=== PATIENT | male | born 1955 | race Caucasian/White ===

== ENCOUNTER 2017-01-21 19:23 | Inpatient (IN) | payer OTHER ==
[~2017-01-21] VITALS: Ht 170.2 cm; Wt 77.9 kg
[2017-01-21 20:26] LABS: BASO % 0.6 % (0.0-2.0); EOS # 0.1 (0.0-0.7); EOS % 0.7 % (0-4.0); GRAN # 4.8 (1.4-6.5); HEMATOCRIT 43.6 % (42.0-52.0); HEMOGLOBIN 14.7 g/dl (13.5-18.0); LYMPH # 1.6 (1.2-3.4); LYMPH % 22.1 % (20.0-51.0); MEAN CELL VOLUME 88 fl (80.0-100.0); MEAN CORPUSCULAR HEMOGLOBIN 30 pg (27.0-31.0); MEAN CORPUSCULAR HGB CONC 34 g/dl (33.0-37.0); MEAN PLATELET VOLUME 9.5 fl (7.4-10.4); MONO # 0.6 (0.1-0.6); PLATELET COUNT 241 K/mm3 (130-400); RED BLOOD COUNT 4.98 M/mm3 (4.20-5.60); REDCELL DISTRIBUTION WIDTH-CV 14.1 % (11.5-14.5); WHITE BLOOD COUNT 7.1 K/mm3 (4.8-10.8)
[2017-01-21 20:42] LABS: PROTHROMBIN TIME 10.7 SECONDS (9.7-12.8)
[2017-01-21 20:43] LABS: ADJUSTED CALCIUM 9.2 mg/dL (8.4-10.2); ALBUMIN 3.5 gm/dL (3.5-5.0); BILIRUBIN,TOTAL 0.6 mg/dL (0.0-1.0); CALCIUM 8.8 mg/dL (8.4-10.2); CREATININE, serum 1.49 mg/dL (0.66-1.25); TOTAL PROTEIN 6.2 gm/dL (6.4-8.2)
[2017-01-21 20:44] LABS: PARTIAL THROMBOPLASTIN TIME 28.5 SECONDS (26.0-37.0)
[2017-01-21 22:40] VITALS: BP 119/96; PULSE 118; TEMP 98.8
[2017-01-22] VITALS (7 sets, daily range): BP systolic 104–114; BP diastolic 65–78; PULSE 91–97; TEMP 97.1–98.6
[2017-01-22 04:36] LABS: PH 5 (5-8); SQUAMOUS EPITHELIAL None Seen /hpf; URINE APPEARANCE Clear; URINE BACTERIA None Seen /hpf; URINE BILIRUBIN Negative (NEGATIVE); URINE BLOOD 1+ (NEGATIVE); URINE COLOR Straw; URINE GLUCOSE Negative (NEGATIVE); URINE KETONE Negative (NEGATIVE); URINE RBC 0-2 /hpf; URINE UROBILINOGEN Negative (NEGATIVE); URINE WBC 0-2 /hpf
[2017-01-22 07:49] LABS: BASO # 0.1 (0.0-0.2); BASO % 0.6 % (0.0-2.0); EOS # 0.1 (0.0-0.7); GRAN # 4.5 (1.4-6.5); GRAN % 58.7 % (42.2-75.2); HEMATOCRIT 42.9 % (42.0-52.0); HEMOGLOBIN 14.6 g/dl (13.5-18.0); LYMPH # 2.2 (1.2-3.4); MEAN CELL VOLUME 88 fl (80.0-100.0); MEAN CORPUSCULAR HEMOGLOBIN 30 pg (27.0-31.0); MEAN CORPUSCULAR HGB CONC 34 g/dl (33.0-37.0); MEAN PLATELET VOLUME 10.2 fl (7.4-10.4); MONO # 0.9 (0.1-0.6); MONO % 11.3 % (1.7-9.3); PLATELET COUNT 255 K/mm3 (130-400); RED BLOOD COUNT 4.87 M/mm3 (4.20-5.60); REDCELL DISTRIBUTION WIDTH-CV 14.3 % (11.5-14.5); WHITE BLOOD COUNT 7.7 K/mm3 (4.8-10.8)
[2017-01-22 08:03] LABS: PROTHROMBIN TIME 11.5 SECONDS (9.7-12.8)
[2017-01-22 08:06] LABS: ADJUSTED CALCIUM 9.5 mg/dL (8.4-10.2); ALBUMIN 3.4 gm/dL (3.5-5.0); BILIRUBIN,TOTAL 0.9 mg/dL (0.0-1.0); CREATININE, serum 1.58 mg/dL (0.66-1.25); MAGNESIUM 1.9 mg/dL (1.6-2.3); POTASSIUM 4.1 mmol/L (3.4-5.0); TOTAL PROTEIN 6.1 gm/dL (6.4-8.2)
[2017-01-22 08:29] LABS: TROPONIN-I 0.047 ng/mL (0.000-0.034)
[2017-01-22 08:32] LABS: THYROID STIMULATING HORMONE 17.2 uIU/mL (0.465-4.680)
[2017-01-23] VITALS (198 sets, daily range): BP systolic 100–130; BP diastolic 71–102; PULSE 76–111; TEMP 97–106; O2SAT 84–98
[2017-01-23 07:35] LABS: HEMATOCRIT 49.9 % (42.0-52.0); MEAN CELL VOLUME 87 fl (80.0-100.0); MEAN CORPUSCULAR HEMOGLOBIN 30 pg (27.0-31.0); MEAN CORPUSCULAR HGB CONC 34 g/dl (33.0-37.0); MEAN PLATELET VOLUME 9.8 fl (7.4-10.4); PLATELET COUNT 266 K/mm3 (130-400); RED BLOOD COUNT 5.73 M/mm3 (4.20-5.60); REDCELL DISTRIBUTION WIDTH-CV 14.2 % (11.5-14.5)
[2017-01-23 07:50] LABS: ADJUSTED CALCIUM 9.3 mg/dL (8.4-10.2); ALBUMIN 4.2 gm/dL (3.5-5.0); BILIRUBIN,TOTAL 1.5 mg/dL (0.0-1.0); CALCIUM 9.5 mg/dL (8.4-10.2); CREATININE, serum 1.64 mg/dL (0.66-1.25); POTASSIUM 3.8 mmol/L (3.4-5.0); TOTAL PROTEIN 7.3 gm/dL (6.4-8.2)
[2017-01-24] VITALS (113 sets, daily range): BP systolic 88–111; BP diastolic 44–97; PULSE 69–96; TEMP 97–98.6; O2SAT 85–98
[2017-01-24 06:19] LABS: BASO % 0.4 % (0.0-2.0); EOS # 0.2 (0.0-0.7); EOS % 2.2 % (0-4.0); GRAN # 5.1 (1.4-6.5); GRAN % 65.9 % (42.2-75.2); HEMATOCRIT 43.4 % (42.0-52.0); LYMPH # 1.6 (1.2-3.4); LYMPH % 20.5 % (20.0-51.0); MEAN CELL VOLUME 88 fl (80.0-100.0); MEAN CORPUSCULAR HEMOGLOBIN 30 pg (27.0-31.0); MEAN CORPUSCULAR HGB CONC 34 g/dl (33.0-37.0); MEAN PLATELET VOLUME 10.1 fl (7.4-10.4); MONO # 0.8 (0.1-0.6); MONO % 10.2 % (1.7-9.3); PLATELET COUNT 223 K/mm3 (130-400); RED BLOOD COUNT 4.94 M/mm3 (4.20-5.60); WHITE BLOOD COUNT 7.7 K/mm3 (4.8-10.8)
[2017-01-24 06:25] LABS: HEMOGLOBIN 14.8 g/dl (13.5-18.0)
[2017-01-24 06:33] LABS: ADJUSTED CALCIUM 9.3 mg/dL (8.4-10.2); ALBUMIN 3.4 gm/dL (3.5-5.0); BILIRUBIN,TOTAL 1.3 mg/dL (0.0-1.0); CALCIUM 8.8 mg/dL (8.4-10.2); CREATININE, serum 1.66 mg/dL (0.66-1.25); POTASSIUM 3.9 mmol/L (3.4-5.0); TOTAL PROTEIN 6.1 gm/dL (6.4-8.2)
[2017-01-25 02:36] VITALS: BP 105/69; PULSE 89; TEMP 98.4
[2017-01-25 07:00] VITALS: BP 106/80; PULSE 85; TEMP 97.5
[2017-01-25 08:39] LABS: ADJUSTED CALCIUM 9.2 mg/dL (8.4-10.2); ALBUMIN 3.8 gm/dL (3.5-5.0); BILIRUBIN,TOTAL 1.3 mg/dL (0.0-1.0); CREATININE, serum 1.46 mg/dL (0.66-1.25); POTASSIUM 3.9 mmol/L (3.4-5.0); TOTAL PROTEIN 6.8 gm/dL (6.4-8.2)
[2017-01-25 09:19] LABS: BASO # 0.1 (0.0-0.2); BASO % 0.9 % (0.0-2.0); EOS # 0.2 (0.0-0.7); GRAN # 3.9 (1.4-6.5); GRAN % 60.2 % (42.2-75.2); HEMOGLOBIN 16.5 g/dl (13.5-18.0); LYMPH # 1.4 (1.2-3.4); LYMPH % 21.9 % (20.0-51.0); MEAN CELL VOLUME 88 fl (80.0-100.0); MEAN CORPUSCULAR HEMOGLOBIN 30 pg (27.0-31.0); MEAN CORPUSCULAR HGB CONC 34 g/dl (33.0-37.0); MEAN PLATELET VOLUME 10.7 fl (7.4-10.4); MONO # 0.8 (0.1-0.6); MONO % 12.7 % (1.7-9.3); RED BLOOD COUNT 5.48 M/mm3 (4.20-5.60); REDCELL DISTRIBUTION WIDTH-CV 13.9 % (11.5-14.5); WHITE BLOOD COUNT 6.4 K/mm3 (4.8-10.8)
[2017-01-25 09:21] LABS: PLATELET COUNT 188 K/mm3 (130-400)
[2017-01-25] MEDS ORDERED: BRILINTA90 MG PO (11:00)
[2017-01-25] MEDS ORDERED: LIPITOR 40MG TA40 MG PO (11:00)
[2017-01-25 11:05] VITALS: BP 101/67; PULSE 91; TEMP 97.7
[2017-01-25] MEDS ORDERED: NITROSTAT0.4 MG/TAB SL (11:07)
[2017-01-25] MEDS ORDERED: VASOTEC 2.2.5 MG/TAB PO (11:12)
[2017-01-25] MEDS ORDERED: TOPROL XL 25MG25 MG PO (11:12)
[2017-01-25] MEDS ORDERED: ASPIRIN 81M81 MG/TA2 PO (11:13)
[2017-01-25] MEDS ORDERED: SYNTHROID0.05 MG/TA PO (11:14)
[2017-01-25] MEDS ORDERED: LASIX 20MG TABL20 MG PO (11:19)
== END 2017-01-25 14:40 | disposition home or self-care (01) | DRG 247 ==
LOC: COL.ER 19:23 → MEDICAL 21:58 → ICU 01-23 14:12 → MEDICAL 01-24 11:50
PROVIDERS: Emergency Medicine; Family Medicine; Internal Medicine; Internal Medicine Cardiovascular Disease; Physician Assistant
PROC: B2111ZZ Fluoroscopy of Multiple Coronary Arteries using Low Osmolar Contrast (ICD-10-PCS; principal; 2017-01-23)
PROC: 027034Z Dilation of Coronary Artery, One Artery with Drug-eluting Intraluminal Device, Percutaneous Approach (ICD-10-PCS; 2017-01-23)
DX: I50.21 Acute systolic (congestive) heart failure (principal); N17.9 Acute kidney failure, unspecified; I42.0 Dilated cardiomyopathy; I25.10 Atherosclerotic heart disease of native coronary artery without angina pectoris; I25.82 Chronic total occlusion of coronary artery; I27.20 Pulmonary hypertension, unspecified
CPT/HCPCS: 99222-AI; 99233-AI; 99239; C1725; C1760; C1769; C1874; C1887; C1894; C9600; J0583; J1644; J1940; J2250; J3010; J7030; Q9967

== ENCOUNTER → 2017-01-27 | Outpatient (CLI) | payer OTHER ==
[~2017-01-27] MED LIST: ASPIRIN 81M81 MG/TA2 PO; BRILINTA90 MG PO; LASIX 20MG TABL20 MG PO; LIPITOR 40MG TA40 MG PO; NITROSTAT0.4 MG/TAB SL; SYNTHROID0.05 MG/TA PO; TOPROL XL 25MG25 MG PO; VASOTEC 2.2.5 MG/TAB PO
[2017-01-27 15:14] LABS: ALBUMIN 4.1 gm/dL (3.5-5.0); CALCIUM 9.2 mg/dL (8.4-10.2); CREATININE, serum 1.61 mg/dL (0.66-1.25); MAGNESIUM 2.1 mg/dL (1.6-2.3); PHOSPHOROUS 3.7 mg/dL (2.5-4.5)
== END ==
LOC: COL.LAB 12:51
PROVIDERS: Family Medicine
DX: N28.9 Disorder of kidney and ureter, unspecified (principal)

== ENCOUNTER 2017-06-17 12:41 | Inpatient (IN) | payer OTHER ==
[~2017-06-17] VITALS: Ht 170.2 cm; Wt 86.0 kg
[2017-06-17 13:39] LABS: HEMATOCRIT 42.1 % (42.0-52.0); HEMOGLOBIN 14.4 g/dl (13.5-18.0); MEAN CELL VOLUME 88 fl (80.0-100.0); MEAN CORPUSCULAR HEMOGLOBIN 30 pg (27.0-31.0); MEAN CORPUSCULAR HGB CONC 34 g/dl (33.0-37.0); MEAN PLATELET VOLUME 9.8 fl (7.4-10.4); PLATELET COUNT 174 K/mm3 (130-400); RED BLOOD COUNT 4.78 M/mm3 (4.20-5.60); REDCELL DISTRIBUTION WIDTH-CV 13.7 % (11.5-14.5)
[2017-06-17 13:47] LABS: ALBUMIN 3.9 gm/dL (3.5-5.0); CALCIUM 8.8 mg/dL (8.4-10.2); CREATININE, serum 1.56 mg/dL (0.66-1.25); POTASSIUM 4.8 mmol/L (3.4-5.0)
[2017-06-17 13:51] LABS: BAND 14 % (0-10); EOSINOPHIL 2 % (0-4); LYMPHOCYTE 12 % (20.0-51.0); NEUTROPHILS 65 % (42.0-75.2); PLATELET ESTIMATE NORMAL (NORMAL)
[2017-06-17 13:59] LABS: TROPONIN-I 0.014 ng/mL (0.000-0.034)
[2017-06-17 16:41] VITALS: BP 101/58; PULSE 72; TEMP 97.9
[2017-06-17 19:11] VITALS: BP 98/56; PULSE 84; TEMP 98.1
[2017-06-17 21:50] VITALS: BP 122/75; PULSE 90
[2017-06-17 23:39] LABS: PARTIAL THROMBOPLASTIN TIME 31.6 SECONDS (26.0-37.0)
[2017-06-17 23:51] VITALS: BP 125/88; PULSE 106; TEMP 99.4
[2017-06-18 00:37] LABS: PH 5 (5-8); SQUAMOUS EPITHELIAL None Seen /hpf; URINE APPEARANCE Clear; URINE BACTERIA None Seen /hpf; URINE BILIRUBIN Negative (NEGATIVE); URINE BLOOD Negative (NEGATIVE); URINE COLOR Yellow; URINE GLUCOSE Negative (NEGATIVE); URINE KETONE Negative (NEGATIVE); URINE LEUKOCYTE ESTERASE Trace (NEGATIVE); URINE NITRATE Negative (NEGATIVE); URINE PROTEIN(semi-quant) Negative (NEGATIVE); URINE UROBILINOGEN Negative (NEGATIVE)
[2017-06-18 01:37] LABS: COLLECTION METHOD CLEAN CATCH
[2017-06-18 04:00] VITALS: BP 106/62; PULSE 70; TEMP 97.9
[2017-06-18 07:43] LABS: HEMATOCRIT 38.5 % (42.0-52.0); HEMOGLOBIN 13.1 g/dl (13.5-18.0); MEAN CELL VOLUME 90 fl (80.0-100.0); MEAN CORPUSCULAR HEMOGLOBIN 31 pg (27.0-31.0); MEAN CORPUSCULAR HGB CONC 34 g/dl (33.0-37.0); MEAN PLATELET VOLUME 10.2 fl (7.4-10.4); PLATELET COUNT 155 K/mm3 (130-400); REDCELL DISTRIBUTION WIDTH-CV 13.7 % (11.5-14.5)
[2017-06-18 07:48] LABS: ALBUMIN 3.5 gm/dL (3.5-5.0); BILIRUBIN,TOTAL 0.6 mg/dL (0.0-1.0); CALCIUM 8.2 mg/dL (8.4-10.2); CREATININE, serum 1.28 mg/dL (0.66-1.25); POTASSIUM 3.9 mmol/L (3.4-5.0); TOTAL PROTEIN 6.5 gm/dL (6.4-8.2)
[2017-06-18 08:00] VITALS: BP 108/56; PULSE 75; TEMP 98.1
[2017-06-18 09:20] LABS: BAND 10 % (0-10); LYMPHOCYTE 28 % (20.0-51.0); METAMYELOCYTE 1 % (0-0); NEUTROPHILS 57 % (42.0-75.2); PLATELET ESTIMATE NORMAL (NORMAL)
[2017-06-18 09:44] LABS: PARTIAL THROMBOPLASTIN TIME 87.3 SECONDS (26.0-37.0)
[2017-06-18 11:56] VITALS: BP 114/75; PULSE 77; TEMP 97.6
[2017-06-18 16:00] VITALS: BP 116/74; PULSE 88; TEMP 98.8
[2017-06-18 19:36] VITALS: BP 120/79; PULSE 80; TEMP 99.7
[2017-06-19 00:10] VITALS: BP 125/73; PULSE 73; TEMP 97.7
[2017-06-19 05:39] VITALS: BP 116/58; PULSE 77; TEMP 98.1
[2017-06-19 07:42] VITALS: BP 115/69; PULSE 56; TEMP 97.9
[2017-06-19 07:48] LABS: HEMATOCRIT 42.2 % (42.0-52.0); HEMOGLOBIN 14.2 g/dl (13.5-18.0); MEAN CELL VOLUME 90 fl (80.0-100.0); MEAN CORPUSCULAR HEMOGLOBIN 30 pg (27.0-31.0); MEAN CORPUSCULAR HGB CONC 34 g/dl (33.0-37.0); MEAN PLATELET VOLUME 10.2 fl (7.4-10.4); PLATELET COUNT 186 K/mm3 (130-400); RED BLOOD COUNT 4.71 M/mm3 (4.20-5.60); REDCELL DISTRIBUTION WIDTH-CV 13.7 % (11.5-14.5)
[2017-06-19 08:13] LABS: CALCIUM 8.8 mg/dL (8.4-10.2); CREATININE, serum 1.43 mg/dL (0.66-1.25); MAGNESIUM 2.3 mg/dL (1.6-2.3); PHOSPHOROUS 4.5 mg/dL (2.5-4.5); POTASSIUM 3.9 mmol/L (3.4-5.0)
[2017-06-19 09:17] LABS: BAND 5 % (0-10); EOSINOPHIL 4 % (0-4); LYMPHOCYTE 45 % (20.0-51.0); NEUTROPHILS 40 % (42.0-75.2); PLATELET ESTIMATE NORMAL (NORMAL)
[2017-06-19] MEDS ORDERED: OMNICEF 300MG300 MG PO ×2 (10:46→11:00)
[2017-06-19] MEDS ORDERED: ZITHROMAX 250M250 MG PO (10:47)
[2017-06-19 11:21] VITALS: BP 115/69; PULSE 80; TEMP 97.7
== END 2017-06-19 13:32 | disposition home or self-care (01) | DRG 193 ==
LOC: COL.ER 12:41 → MEDICAL 14:41 → COL.ER 14:41 → MEDICAL 06-19 09:49
PROVIDERS: Emergency Medicine; Internal Medicine; Nurse Practitioner Family
DX: J12.3 Human metapneumovirus pneumonia (principal); I50.23 Acute on chronic systolic (congestive) heart failure; I13.0 Hypertensive heart and chronic kidney disease with heart failure and stage 1 through stage 4 chronic kidney disease, or unspecified chronic kidney disease; N39.0 Urinary tract infection, site not specified; I42.9 Cardiomyopathy, unspecified; I47.2 Ventricular tachycardia; I25.10 Atherosclerotic heart disease of native coronary artery without angina pectoris; E11.22 Type 2 diabetes mellitus with diabetic chronic kidney disease; N18.9 Chronic kidney disease, unspecified; I08.1 Rheumatic disorders of both mitral and tricuspid valves; I27.22 Pulmonary hypertension due to left heart disease; Z95.5 Presence of coronary angioplasty implant and graft
CPT/HCPCS: 99222-AI; 99239; C9113; J0456; J0696; J1644; J1940; J7030; J7050

== ENCOUNTER 2018-12-12 10:35 | Emergency (ER) | payer OTHER ==
[~2018-12-12] VITALS: Ht 170.2 cm; Wt 87.7 kg
[~2018-12-12 10:35] MED LIST changes: +OMNICEF 300MG300 MG PO; +ZITHROMAX 250M250 MG PO
[2018-12-12 10:41] VITALS: TEMP 97.5
[2018-12-12 10:51] LABS: BASO % 0.4 % (0.0-2.0); EOS # 0.1 (0.0-0.7); EOS % 0.7 % (0-4.0); GRAN # 4.9 (1.4-6.5); GRAN % 64.7 % (42.2-75.2); HEMATOCRIT 48.1 % (42.0-52.0); HEMOGLOBIN 16.3 g/dl (13.5-18.0); LYMPH # 1.8 (1.2-3.4); LYMPH % 23.5 % (20.0-51.0); MEAN CELL VOLUME 89 fl (80.0-100.0); MEAN CORPUSCULAR HEMOGLOBIN 30 pg (27.0-31.0); MEAN CORPUSCULAR HGB CONC 34 g/dl (33.0-37.0); MEAN PLATELET VOLUME 9.9 fl (7.4-10.4); MONO # 0.8 (0.1-0.6); MONO % 10.2 % (1.7-9.3); PLATELET COUNT 218 K/mm3 (130-400); RED BLOOD COUNT 5.43 M/mm3 (4.20-5.60); REDCELL DISTRIBUTION WIDTH-CV 13.8 % (11.5-14.5)
[2018-12-12 11:02] LABS: ALBUMIN 3.7 gm/dL (3.5-5.0); BILIRUBIN,TOTAL 0.9 mg/dL (0.0-1.0); CALCIUM 9.2 mg/dL (8.4-10.2); CREATININE, serum 1.33 (0.66-1.25); POTASSIUM 4.8 mmol/L (3.4-5.0); TOTAL PROTEIN 6.5 gm/dL (6.4-8.2)
[2018-12-12] MEDS ORDERED: COREG 25MG25 MG/TAB (11:03)
[2018-12-12] MEDS ORDERED: MAG-OX 400400 MG/TAB (11:03)
[2018-12-12 11:13] LABS: TROPONIN-I 0.013 ng/mL (0.000-0.035)
[2018-12-12 11:59] LABS: THYROID STIMULATING HORMONE 9.7 uIU/mL (0.465-4.680)
[2018-12-12] MEDS ORDERED: LASIX 40MG TABL40 MG PO (14:32)
[2018-12-12] MEDS ORDERED: K-TAB20 PO (14:32)
[2018-12-12 14:45] VITALS: BP 116/86; PULSE 76
== END 2018-12-12 14:50 | disposition home or self-care (01) ==
LOC: COL.ER 10:35
PROVIDERS: Emergency Medicine
DX: I50.9 Heart failure, unspecified (principal); E03.9 Hypothyroidism, unspecified; N18.9 Chronic kidney disease, unspecified; Z79.82 Long term (current) use of aspirin
CPT/HCPCS: J1940

== ENCOUNTER 2021-03-10 21:14 | Emergency (ER) | payer OTHER, MEDICARE ==
[~2021-03-10] VITALS: Ht 170.2 cm; Wt 68.2 kg
[~2021-03-10 21:14] MED LIST changes: +COREG 25MG25 MG/TAB; +ELIQUIS 5MG PO; +K-TAB20 PO; +LASIX 40MG TABL40 MG PO; +MAG-OX 400400 MG/TAB
[2021-03-10 21:29] VITALS: TEMP 98.8
[2021-03-10] MEDS ORDERED: NESINA6.25 PO (22:30)
[2021-03-10] MEDS ORDERED: CALCIUM CITRAT200 M2 PO (22:31)
[2021-03-10] MEDS ORDERED: MASON NATURAL2000 IU PO (22:32)
[2021-03-10] MEDS ORDERED: MELATONIN5 M1 SL (22:33)
[2021-03-10] MEDS ORDERED: PREDNISONE 5MG5 MG PO (22:34)
[2021-03-10] MEDS ORDERED: PROTONIX 40MG T40 MG PO (22:34)
[2021-03-10] MEDS ORDERED: RAPAMUNE0.5 MG PO (22:35)
[2021-03-10] MEDS ORDERED: PROGRAF 1MG1 MG PO (22:36)
[2021-03-10] MEDS ORDERED: FLOMAX 0.40.4 MG/CAP PO (22:36)
[2021-03-10] MEDS ORDERED: DIOVAN 40MG40 MG PO (22:37)
[2021-03-10 22:43] VITALS: BP 141/92; PULSE 103
== END 2021-03-10 22:43 | disposition home or self-care (01) ==
LOC: COL.ER 21:14
DX: S80.812A Abrasion, left lower leg, initial encounter (principal); E11.9 Type 2 diabetes mellitus without complications; I50.9 Heart failure, unspecified; E03.9 Hypothyroidism, unspecified; Z86.718 Personal history of other venous thrombosis and embolism; Z79.01 Long term (current) use of anticoagulants; Z79.84 Long term (current) use of oral hypoglycemic drugs; Z79.890 Hormone replacement therapy; W22.8XXA Striking against or struck by other objects, initial encounter; Y93.39 Activity, other involving climbing, rappelling and jumping off

== ENCOUNTER 2021-03-12 16:12 | Emergency (ER) | payer OTHER, MEDICARE ==
[~2021-03-12] VITALS: Ht 170.2 cm; Wt 68.2 kg
[~2021-03-12 16:12] MED LIST changes: +CALCIUM CITRAT200 M2 PO; +DIOVAN 40MG40 MG PO; +FLOMAX 0.40.4 MG/CAP PO; +MASON NATURAL2000 IU PO; +MELATONIN5 M1 SL; +NESINA6.25 PO; +PREDNISONE 5MG5 MG PO; +PROGRAF 1MG1 MG PO; +PROTONIX 40MG T40 MG PO; +RAPAMUNE0.5 MG PO
[2021-03-12 16:28] VITALS: TEMP 98.9
[2021-03-12 17:04] LABS: BASO % 0.2 % (0.0-2.0); EOS % 0.1 % (0-4.0); GRAN # 8.2 K/mm3 (1.4-6.5); HEMATOCRIT 40.9 % (42.0-52.0); HEMOGLOBIN 13.5 g/dl (13.5-18.0); LYMPH # 1.1 K/mm3 (1.2-3.4); LYMPH % 11.4 % (20.0-51.0); MEAN CELL VOLUME 79 fl (80.0-100.0); MEAN CORPUSCULAR HEMOGLOBIN 26 pg (27.0-31.0); MEAN CORPUSCULAR HGB CONC 33 g/dl (33.0-37.0); MEAN PLATELET VOLUME 8.9 fl (7.4-10.4); MONO # 0.6 K/mm3 (0.1-0.6); MONO % 5.9 % (1.7-9.3); PLATELET COUNT 236 K/mm3 (130-400); RED BLOOD COUNT 5.19 M/mm3 (4.20-5.60); REDCELL DISTRIBUTION WIDTH-CV 13.7 % (11.5-14.5)
[2021-03-12 17:22] LABS: ALBUMIN 3.9 gm/dL (3.4-4.8); BILIRUBIN,TOTAL 0.8 mg/dL (0.2-1.2); C-REACTIVE PROTEIN 0.26 mg/dL (0.00-0.50); CALCIUM 9.1 mg/dL (8.4-10.2); CREATININE, serum 1.36 mg/dL (0.72-1.25); POTASSIUM 4.1 mmol/L (3.5-4.5)
[2021-03-12 20:07] VITALS: BP 142/92; PULSE 106
== END 2021-03-12 20:07 | disposition home or self-care (01) ==
LOC: COL.ER 16:12
PROVIDERS: Nurse Practitioner Primary Care
DX: S80.812A Abrasion, left lower leg, initial encounter (principal); I82.402 Acute embolism and thrombosis of unspecified deep veins of left lower extremity; I50.9 Heart failure, unspecified; E11.9 Type 2 diabetes mellitus without complications; E03.9 Hypothyroidism, unspecified; Z79.890 Hormone replacement therapy; Z79.01 Long term (current) use of anticoagulants; Z79.84 Long term (current) use of oral hypoglycemic drugs; Z79.899 Other long term (current) drug therapy; W22.8XXA Striking against or struck by other objects, initial encounter

== ENCOUNTER → 2021-03-26 | Outpatient (CLI) | payer MEDICARE ==
[2021-03-26 12:24] LABS: BASO % 0.6 % (0.0-2.0); EOS # 0.1 K/mm3 (0.0-0.7); EOS % 0.7 % (0-4.0); GRAN # 3.9 K/mm3 (1.4-6.5); GRAN % 56.7 % (42.2-75.2); HEMATOCRIT 41.1 % (42.0-52.0); LYMPH # 1.7 K/mm3 (1.2-3.4); MEAN CELL VOLUME 82 fl (80.0-100.0); MEAN CORPUSCULAR HEMOGLOBIN 26 pg (27.0-31.0); MEAN CORPUSCULAR HGB CONC 32 g/dl (33.0-37.0); MONO # 1.1 K/mm3 (0.1-0.6); MONO % 16.3 % (1.7-9.3); PLATELET COUNT 299 K/mm3 (130-400); REDCELL DISTRIBUTION WIDTH-CV 15.1 % (11.5-14.5)
[2021-03-26 12:37] LABS: ALBUMIN 3.8 gm/dL (3.4-4.8); BILIRUBIN,TOTAL 0.6 mg/dL (0.2-1.2); C-REACTIVE PROTEIN 0.23 mg/dL (0.00-0.50); CALCIUM 9.1 mg/dL (8.4-10.2); CREATININE, serum 1.11 mg/dL (0.72-1.25); POTASSIUM 3.9 mmol/L (3.5-4.5); TOTAL PROTEIN 6.8 gm/dL (6.2-8.1)
== END ==
LOC: ZCOL.LAB 11:26
DX: I10 Essential (primary) hypertension (principal); Z01.89 Encounter for other specified special examinations

== ENCOUNTER → 2021-05-24 | Outpatient (CLI) | payer OTHER, MEDICARE | LOC: MC.RAD 08:34 | DX: N62 Hypertrophy of breast (principal) ==

== ENCOUNTER → 2021-08-31 | Outpatient (CLI) | payer OTHER | LOC: COL.RAD 08:03 | DX: Z01.89 Encounter for other specified special examinations (principal); Z94.1 Heart transplant status ==

== ENCOUNTER 2021-10-19 15:35 | Emergency (ER) | payer OTHER, MEDICARE ==
[~2021-10-19] VITALS: Ht 170.2 cm; Wt 64.5 kg
[2021-10-19 17:48] LABS: BASO % 0.2 % (0.0-2.0); GRAN # 3.8 K/mm3 (1.4-6.5); GRAN % 65.1 % (42.2-75.2); HEMATOCRIT 43.2 % (42.0-52.0); HEMOGLOBIN 14.6 g/dl (13.5-18.0); LYMPH # 0.9 K/mm3 (1.2-3.4); LYMPH % 15.4 % (20.0-51.0); MEAN CELL VOLUME 87 fl (80.0-100.0); MEAN CORPUSCULAR HEMOGLOBIN 30 pg (27-31); MEAN CORPUSCULAR HGB CONC 34 g/dl (33.0-37.0); MEAN PLATELET VOLUME 9.5 fl (7.4-10.4); MONO # 1.1 K/mm3 (0.1-0.6); MONO % 18.8 % (1.7-9.3); PLATELET COUNT 144 K/mm3 (130-400); RED BLOOD COUNT 4.95 M/mm3 (4.20-5.60); REDCELL DISTRIBUTION WIDTH-CV 13.5 % (11.5-14.5)
[2021-10-19 18:03] LABS: ALANINE AMINOTRANSFERASE 24 U/L (0-55); ALBUMIN 3.8 gm/dL (3.4-4.8); ALKALINE PHOSPHATASE 65 U/L (40-150); ANION GAP 11 mmol/L (7-16); AST,SGOT 26 U/L (5-34); BILIRUBIN,TOTAL 0.6 mg/dL (0.2-1.2); BLOOD UREA NITROGEN 16 mg/dL (8-26); CALCIUM 8.7 mg/dL (8.4-10.2); CARBON DIOXIDE 23 mmol/L (23-31); CHLORIDE 101 mmol/L (98-107); CREATININE, serum 1.23 mg/dL (0.72-1.25); GLUCOSE 94 mg/dL (70-99); POTASSIUM 4.1 mmol/L (3.5-4.5); SODIUM 135 mmol/L (136-145); TOTAL PROTEIN 6.5 gm/dL (6.2-8.1)
[2021-10-19 18:14] LABS: TROPONIN-I < 0.010 ng/mL (0.00-0.033)
[2021-10-19] MEDS ORDERED: MOLNUPIRAVIR (200 MG PO (18:56)
[2021-10-19 21:32] VITALS: BP 140/90; PULSE 95; TEMP 98.7
== END 2021-10-19 21:33 | disposition home or self-care (01) ==
LOC: COL.ER 15:35
PROVIDERS: Emergency Medicine
DX: U07.1 COVID-19 (principal); R00.0 Tachycardia, unspecified

== ENCOUNTER 2022-08-23 07:53 | Emergency (ER) | payer OTHER, MEDICARE ==
[~2022-08-23] VITALS: Ht 170.2 cm; Wt 70.5 kg
[~2022-08-23 07:53] MED LIST changes: +MOLNUPIRAVIR (200 MG PO
[2022-08-23 07:55] VITALS: TEMP 98.7
[2022-08-23 10:46] VITALS: BP 131/90; PULSE 110
== END 2022-08-23 10:46 | disposition home or self-care (01) ==
LOC: COL.ER 07:53
DX: M79.604 Pain in right leg (principal); M79.605 Pain in left leg; Z86.718 Personal history of other venous thrombosis and embolism; Z28.310 Unvaccinated for COVID-19

== ENCOUNTER 2022-10-05 09:32 | Emergency (ER) | payer OTHER, MEDICARE ==
[~2022-10-05] VITALS: Ht 170.2 cm; Wt 70.0 kg
[2022-10-05 09:42] VITALS: BP 137/88; PULSE 119; TEMP 98
[2022-10-05] MEDS ORDERED: VALTREX1 GM PO (10:27)
[2022-10-05] MEDS ORDERED: PREDNISONE20 MG PO (10:33)
== END 2022-10-05 10:55 | disposition home or self-care (01) ==
LOC: COL.ER 09:32
DX: B02.9 Zoster without complications (principal)